=== PATIENT | female | born 1965 | race Caucasian/White ===

== ENCOUNTER → 2020-09-06 07:01 | Outpatient (CLI) | payer BC, SELFPAY ==
--- NOTE | ~2020-09-06 | MR_ITS ---
EXAMINATION: MR lumbar spine wo [facility] EXAM DATE: 09/06/2020 07:45 INDICATION: Radiculopathy, lumbar region radiculopathy . Low back and bilateral leg pain. States lift ing injury. TECHNIQUE: Multi-sequential, multiplanar MR images of the lumbar spine were obtained without contrast . Sagittal T1, T2, T2 fat saturation images. Axial T2 weighted images. There is no prior study for comparison. FINDINGS: There is moderate disc disease L2-S1. Endplate degenerative signal change mostly L2-3 and L 5-S1. There is 2-3 mm retrolisthesis L4 on L5 and L5 on S1. The vertebral bodies are otherwise aligne d. The conus medullaris terminates at the T12-L1 level and has normal signal intensity and morphology . Paraspinal soft tissue is unremarkable. Small left fundal fibroid. Level by level evaluation: T12-L1: Disc does not extend beyond the endplate margin. Facet arthropathy: Mild. Neural foraminal stenosis: No stenosis. Central canal stenosis: No stenosis. L1-L2: Disc does not extend beyond the endplate margin. Facet arthropathy: Mild. Neural foraminal stenosis: No stenosis. Central canal stenosis: No stenosis. L2-L3: There is a mild diffuse disc bulge, superimposed tiny left central extrusion inferior migratio n. Facet arthropathy: Mild. Neural foraminal stenosis: Mild left. Central canal stenosis: Mild. L3-L4: There is a mild diffuse disc bulge. Facet arthropathy: Mild. Neural foraminal stenosis: No stenosis. Central canal stenosis: No stenosis. L4-L5: There is a mild to moderate diffuse disc bulge asymmetric to the right Facet arthropathy: Mild to moderate. Neural foraminal stenosis: Mild to moderate right, mild left. Central canal stenosis: Mild, right lateral recess narrowing. L5-S1: There is a mild to moderate diffuse disc bulge asymmetric to the right Facet arthropathy: Mild. Neural foraminal stenosis: Mild to moderate bilateral. Central canal stenosis: Mild. IMPRESSION: 1. Moderate lumbar disc disease, mild to moderate arthropathy and lower lumbar stenosis. 2. Small fibroid. Reviewed, dictated and finalized at location B.
== END ==
PROVIDERS: Visit Provider Nurse Practitioner Adult Health
DX: M47.25 Other spondylosis with radiculopathy, thoracolumbar region (principal); M48.05 Spinal stenosis, thoracolumbar region; M47.27 Other spondylosis with radiculopathy, lumbosacral region; M48.07 Spinal stenosis, lumbosacral region
CPT/HCPCS: 72148

== ENCOUNTER 2023-12-30 10:06 | Emergency (ER) | payer BC, SELFPAY ==
[2023-12-30] VITALS (7 sets, daily range): BP systolic 111–149; BP diastolic 70–96; PULSE 73–86; RESP 12–19; TEMP 36.3–36.8; O2SAT 93–100
--- NOTE | ~2023-12-30 | XR_ITS ---
EXAMINATION: XR hip LT 2V w AP pelvis DATE: 12/30/2023 10:25 INDICATION: Left hip dislocation. TECHNIQUE: An anteroposterior view of the pelvis and 2 views of left hip were obtained. COMPARISON: None. FINDINGS: There is a total left hip arthroplasty. There is proximal dislocation of the femoral compon ent with respect to the acetabular cup. No fracture. There is mild right hip osteoarthritis. There is lumbar dextroscoliosis and severe spondylosis. IMPRESSION: 1. Dislocated total left hip arthroplasty. 2. Mild right hip osteoarthritis. Reviewed, dictated and finalized at location A.
--- NOTE | 2023-12-30 10:13 | ED.GENADULT ---
HPI - General Adult General Chief complaint: Recheck/Abnormal Lab/Rx Stated complaint: hip dislocation History of Present Illness HPI narrative: 58-year-old female presenting to the emergency department for evaluation for a suspected left hip dislocation. Patient had a recent floor arthroplasty of the left hip done at [facility]. Patient states that after shaving her legs she put her left leg up on a stool to look at a cut and felt her hip dislocate. Patient called EMS and was treated with medications for pain control en route. Patient denies any other pain or injury. Related Data Allergies Allergy/AdvReac Type Severity Reaction Status Date / Time Sulfa (Sulfonamide AdvReac Headache Verified 12/30/23 10:17 Antibiotics) Review of Systems Review of Systems: All systems reviewed & are unremarkable except as noted in HPI and below Exam Narrative: APPEARANCE: Uncomfortable appearing secondary to hip HEAD: normocephalic, atraumatic. EYES: PERRLA/EOMI, conjunctivae clear. NOSE: Normal no drainage EARS:TMS clear with good light reflex. THROAT: Pharynx clear, no exudate. NECK: Supple. No adenopathy, no masses. RESPIRATORY: Airway patent, respirations nonlabored. Clear to auscultation bilaterally, no rales, rhonchi, wheezing. CARDIOVASCULAR: Regular rate and rhythm without murmurs rubs or gallops. ABDOMINAL: Soft, nontender, nondistended, normal bowel sounds MUSCULOSKELETAL: Left hip dislocation neurovascularly intact NEURO: Alert. Cranial nerves II through XII intact. Good gait. Good coordination SKIN: Warm, dry. Normal Color Course Vital Signs Vital signs: Vital Signs Temperature 97.4 F L 12/30/23 10:09 Pulse Rate 79 12/30/23 10:09 Respiratory Rate 17 12/30/23 10:09 Blood Pressure 112/73 12/30/23 10:09 Pulse Oximetry 99 12/30/23 10:09 Oxygen Delivery Room Air 12/30/23 10:09 Temperature 98.2 F 12/30/23 13:30 Pulse Rate 80 12/30/23 13:30 Respiratory Rate 12 12/30/23 13:30 Blood Pressure 126/80 12/30/23 13:30 Pulse Oximetry 100 12/30/23 13:30 Oxygen Delivery Room Air 12/30/23 11:20 Oxygen Flow Rate 2 12/30/23 10:50 Procedures Orthopedic Joint Reduction Joint #1: Time Out Performed: Yes Side: left Joint Reduction Location: hip Analgesia: procedural sedation Pre-Procedure Neuro Vascular Exam: normal Shoulder Technique Used (if applicable): traction/counter-traction and external rotation Technique used: traction/counter-traction Post-reduction neuro exam: intact Post-reduction vascular: intact Post Reduction X-Ray Obtained: No Post Reduction X-Ray Results: not reduced Procedural Sedation Procedural Sedation #1: Procedural Sedation Time: 10:52 Presedation Evaluation: APPEARANCE: Well appearing, no pain, no distress, well-nourished. HEAD: normocephalic, atraumatic. EYES: PERRLA/EOMI, conjunctivae clear. NOSE: Normal no drainage EARS:TMS clear with good light reflex. THROAT: Pharynx clear, no exudate. NECK: Supple. No adenopathy, no masses. RESPIRATORY: Airway patent, respirations nonlabored. Clear to auscultation bilaterally, no rales, rhonchi, wheezing. CARDIOVASCULAR: Regular rate and rhythm without murmurs rubs or gallops. ABDOMINAL: Soft, nontender, nondistended, normal bowel sounds MUSCULOSKELETAL: Left hip dislocation NEURO: Alert. Cranial nerves II through XII intact. Good gait. Good coordination SKIN: Warm, dry. Normal Color Provider Performed: sedation and procedure Informed Consent Obtained: yes Equipment in Room: bag and mask, capnography, bus monitor, crash cart, oxygen, pulse oximeter and suction Plan for Sedation: moderate sedation ASA Class: II Mallampati Classification: class I NPO Status: last solid food (hours ago) Explanation to Patient/Family: Risk/Benefits/Alternatives and Pt/Family agreed with plan Pt. E
[2023-12-30] MEDS: HYDROmorphone HCL INJ (*CRX) 1 MG/ML SYR 0.5 MG IV PUSH ×2 (10:29→11:19)
[2023-12-30] MEDS: PROPOFOL IV EMULSION 200 MG/20 ML VIAL 60 MG IV PUSH (10:42)
[2023-12-30] MEDS: SODIUM CHLORIDE 0.9% IV 1,000 ML 999 ML (10:57)
--- NOTE | 2023-12-30 10:57 | PC.NURSE ---
1040: consent signed, all equip in room for procedure, Pt A&Ox4 1042: Time out by Dr. Barraza, 60 mg Propofol given by 1043 40mg Propofol given by 1049: procedure complete. unsuccessful reduction. pt arousable on calling
[2023-12-30] MEDS: HYDROmorphone HCL INJ (*CRX) 1 MG/ML SYR IV PUSH ×2 (12:13→13:27)
== END 2023-12-30 13:30 | disposition short-term general hospital (02) ==
PROVIDERS: Emergency Provider Emergency Medicine
DX: T84.021A Dislocation of internal left hip prosthesis, initial encounter (principal); Y79.2 Prosthetic and other implants, materials and accessory orthopedic devices associated with adverse incidents; M16.11 Unilateral primary osteoarthritis, right hip
CPT/HCPCS: 27265; 73502; 96374; 96376; 99285; J1171; J2704; J7030